=== PATIENT | male | born 1950 ===

== ENCOUNTER → 2022-12-13 | Outpatient (CLI) | payer OTHER ==
[2022-12-14 14:52] LABS: Protein, Urine Quantitative 9.7 mg/dL (0.0-11.9)
[2022-12-14 14:54] LABS: Microalbumin, Urine Quant. 6.4 mg/L (0.000-20.000)
== END | disposition home or self-care (01) ==
LOC: LAB SHORT 10:53
PROVIDERS: Internal Medicine Nephrology
DX: N18.30 Chronic kidney disease, stage 3 unspecified (principal); D63.1 Anemia in chronic kidney disease; N25.81 Secondary hyperparathyroidism of renal origin; E55.9 Vitamin D deficiency, unspecified; E78.00 Pure hypercholesterolemia, unspecified; R76.9 Abnormal immunological finding in serum, unspecified; R94.6 Abnormal results of thyroid function studies
CPT/HCPCS: 81050; 82043; 82570; 84156

== ENCOUNTER 2023-10-08 08:41 | Day surgery (SDC) | payer OTHER ==
[~2023-10-08] VITALS: Ht 177.8 cm; Wt 72.0 kg
[2023-10-08] VITALS (7 sets, daily range): BP systolic 147–169; BP diastolic 43–54
[~2023-10-08 08:41] MED LIST: AMLO5 PO; ATOR80 PO; B-12500 MC1 SL; CALC.25 PO; FAMO20 PO; LISI20 PO; METO25 PO; OMEP20ER PO; TAMS.4ER PO
[2023-10-08] MEDS ORDERED: ASPI81CH PO (10:14)
[2023-10-08] MEDS ORDERED: SODBIC650 PO (10:14)
[2023-10-08] MEDS ORDERED: CALCIUM 600 +1 EA11 PO (10:16)
--- NOTE | 2023-10-08 14:48 | NUR ---
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 alert and oriented. vss. r groin site wnl, no hematoma no oozing no bleeding. pt offered meal tray and refreshments.
--- NOTE | 2023-10-08 15:28 | NUR ---
pt needing frequent reminder to lay flat in bed, site rechecked after movement. remains wnl, no hematoma no bleeding. pt vss.
[2023-10-08] MEDS ORDERED: CLOP75 PO (16:05)
--- NOTE | 2023-10-08 16:50 | NUR ---
PT SITTING UP IN BED AND ASSISTED TO AMBULATE. PT. SITE REMAINS UNCHANGED, NO HEMATOMA, NO OOZING. PT. VSS. IV REMOVED CATHETER INTACT. PT. ABLE TO GET SELF DRESSED WITH OUT DIFFICULTY. PT. SITE CHECKED AGAIN AFTER DRESSING AND REMAINS WNL. PT. DISCHARGE INSTRUCTIONS REVIEWED IN DETAIL, [facility] [place] PRESCRIPTION FAXED TO [facility] PER PT REQUEST. PT. GATHERED ALL BELONGINGS AND TAKEN TO EXIT VIA WHEEL CHAIR, PT TO DRIVE PT HOME.
== END 2023-10-08 22:54 | disposition home or self-care (01) ==
LOC: MHTC 08:41
DX: I12.9 Hypertensive chronic kidney disease with stage 1 through stage 4 chronic kidney disease, or unspecified chronic kidney disease (principal); I70.1 Atherosclerosis of renal artery; N18.32 Chronic kidney disease, stage 3b; E55.9 Vitamin D deficiency, unspecified; F17.210 Nicotine dependence, cigarettes, uncomplicated; Z79.899 Other long term (current) drug therapy
CPT/HCPCS: 76937; 99152; 99153; C1760; C1769; C1876; C1887; C1894; J2250; J3010; J7030; J7050; Q9967